=== PATIENT | female | born 1960 | race African-American/Black ===

== ENCOUNTER → 2025-09-30 | Outpatient (CLI) | payer MEDICARE ==
[2025-09-30 10:13] LABS: APPEARANCE, URINE HAZY (CLEAR); BACTERIA, URINE AUTO 1+ (NEGATIVE); BILIRUBIN, URINE AUTO NEGATIVE (NEGATIVE); BLOOD, URINE BLOOD NEGATIVE (NEGATIVE); GLUCOSE, URINE (UA) AUTO NEGATIVE (NEGATIVE); KETONE, URINE AUTO NEGATIVE (NEGATIVE); LEUKOCYTE ESTERASE, URINE AUTO NEGATIVE (NEGATIVE); MUCUS, URINE SMALL (NEGATIVE); NITRITE, URINE AUTO NEGATIVE (NEGATIVE); PROTEIN, URINE AUTO NEGATIVE (NEGATIVE); RBC, URINE AUTO 0 /HPF (0-3); SPECIFIC GRAVITY URINE AUTO 1.025 (1.002-1.035); SQUAMOUS EPITHELIAL CELL UR AU 8 /HPF (0-6); UROBILINOGEN, URINE AUTO 0.2 mg/dL (0.0-2.0); WBC, URINE AUTO 3 /HPF (0-3)
[2025-09-30 10:13] LABS: PLATELET COUNT, AUTOMATED 226 10^3/uL (150-450)
[2025-09-30 11:33] LABS: ALT/SGPT 19.0 U/L (7.0-40); AST/SGOT 18.0 U/L (<34); CALCIUM LEVEL 9.8 MG/DL (8.3-10.6); CARBON DIOXIDE LEVEL 24.0 MMOL/L (20-31); CHLORIDE LEVEL 106.0 MMOL/L (98-107); CHOLESTEROL LEVEL 195.0 MG/DL (<200); CHOLESTEROL RISK RATIO 3.08 (<5); CREATININE FOR GFR 0.74 MG/DL (0.55-1.30); FREE T4 1.1 NG/DL (0.89-1.76); GLOMERULAR FILTRATION RATE 89.7 (>45); LDL CHOLESTEROL 114.0 MG/DL (<100); NON-HDL-C 131.8 MG/DL; POTASSIUM SERUM 4.2 MMOL/L (3.5-5.1); SODIUM LEVEL 142.0 MMOL/L (136-145); TRIGLYCERIDES LEVEL 89.0 MG/DL (<150)
[2025-09-30 12:19] LABS: MALB URINE SIEMENS 4.0 MG/L
[2025-09-30 12:31] LABS: CREATININE, URINE 245.5 MG/DL; MAU/CREAT RATIO 1.6 MCG/MG (0.0-30.0)
[2025-09-30 12:51] LABS: ESTIMATED AVERAGE GLUCOSE 126.0 MG/DL (60-110)
== END ==
LOC: EDBD 09:13 → M LAB 09:13
PROVIDERS: ATTEND Registered Nurse
DX: Z13.220 Encounter for screening for lipoid disorders (principal); I10 Essential (primary) hypertension; Z13.21 Encounter for screening for nutritional disorder; Z13.29 Encounter for screening for other suspected endocrine disorder; Z13.1 Encounter for screening for diabetes mellitus